=== PATIENT | male | born 1985 | race African-American/Black ===

== ENCOUNTER 2018-11-18 20:34 | Emergency (ER) | payer MEDICAID ==
[~2018-11-18] VITALS: Ht 188 cm; Wt 90.0 kg
[2018-11-18] MEDS ORDERED: SODIUM CHLORIDE 0.9% 1,000 ML IV ONE (21:01)
[2018-11-18] MEDS ORDERED: ASPIRIN 81MG TABLET PO ONE (21:15)
[2018-11-18 21:23] LABS: BASOPHILS % 0.5 % (0.0-2.0); EOSINOPHILS % 1.2 % (0.0-5.0); HEMATOCRIT. 43.6 % (42.0-52.0); HEMOGLOBIN. 14.7 g/dL (14.0-18.0); LYMPHOCYTES % 35.7 % (20.0-50.0); MEAN CORPUSCULAR HEMOGLOBIN 31.7 pg (28.0-32.0); MEAN CORPUSCULAR VOLUME 94.2 fL (80.0-94.0); MEAN PLATELET VOLUME 8.3 fl (7.4-10.4); MONOCYTES % 9.9 % (2.0-8.0); NEUTROPHILS % 52.7 % (40.0-76.0); PLATELET 170 x1000/uL (130-400); RED BLOOD CELL COUNT 4.62 mill/uL (4.7-6.1); RED CELL DISTRIBUTION WIDTH 12.6 % (11.6-14.6)
[2018-11-18 21:30] LABS: CHLORIDE 107 mEq/L (98-107)
[2018-11-18 21:32] LABS: PROTHROMBIN TIME 10.7 sec (9.6-11.0)
[2018-11-18 23:08] VITALS: BP 102/66
== END 2018-11-18 23:08 | disposition home or self-care (01) ==
LOC: ER 20:34
DX: R07.89 Other chest pain (principal); R00.2 Palpitations; R01.1 Cardiac murmur, unspecified
CPT/HCPCS: 36415; 71045; 80053; 82962; 84484; 85025; 85610; 93005; 96360; 99284; J7030